=== PATIENT | male | born 1955 | race Caucasian/White ===

== ENCOUNTER 2017-12-19 09:00 | Outpatient (RCR) | payer OTHER ==
[~2017-12-19 09:00] MED LIST: LISINOPRIL PO; METOPROLOL TART50 MG PO; NORCO 10-325 T1 EACH PO; PRAVASTATIN SOD20 MG PO
== END 2017-12-23 ==
LOC: PT 09:00
PROVIDERS: ATTEND Specialist
DX: M16.12 Unilateral primary osteoarthritis, left hip (principal); M25.552 Pain in left hip; M25.562 Pain in left knee; M25.561 Pain in right knee; M54.5 Low back pain; M25.652 Stiffness of left hip, not elsewhere classified; M25.651 Stiffness of right hip, not elsewhere classified; M62.81 Muscle weakness (generalized)

== ENCOUNTER 2018-01-02 10:00 | Outpatient (RCR) | payer OTHER ==
[2018-01-06] MEDS ORDERED: LISINOPRIL-HCT1 EACH PO (15:04)
[2018-01-06] MEDS ORDERED: DICLOFENAC SODI75 MG PO (15:05)
[2018-01-06] MEDS ORDERED: MS CONTIN15 MG PO (15:05)
[2018-01-06] MEDS ORDERED: GABAPENTIN300 MG PO (15:05)
[2018-01-06] MEDS ORDERED: ACETAMINOPHEN500 MG PO (15:06)
[2018-01-06] MEDS ORDERED: GLUCOSAMINE CH1 EAC5 PO (15:07)
== END 2018-01-23 ==
LOC: PT 10:00
PROVIDERS: ATTEND Specialist
DX: M16.12 Unilateral primary osteoarthritis, left hip (principal)

== ENCOUNTER → 2018-01-08 | Day surgery (SDC) | payer OTHER ==
[2018-01-06 15:58] LABS: ANION GAP 16.7 mmol/L (8-16); CALCIUM 10.4 mg/dL (8.4-10.2); CREATININE, SERUM 1.26 mg/dL (0.72-1.25); POTASSIUM 4.7 mmol/L (3.5-5.1)
[~2018-01-08] MED LIST changes: +ACETAMINOPHEN500 MG PO; +CEFAZOLIN SOD 1 GM VIAL ONE; +DEXAMETHASONE SOD PHOS INJ 4 MG/ML VIAL ONE; +DICLOFENAC SODI75 MG PO; +FENTANYL CITRATE/PF 100MCG/2 ML INJ ONE; +GABAPENTIN300 MG PO; +GLUCOSAMINE CH1 EAC5 PO; +GLYCOPYRROLATE INJ 1MG/ 5 ML SYR ONE; +LIDOCAINE 2% /EPINEPHRINE 20 ML SDV INJ ONE; +LIDOCAINE HCL 2% LOCAL INJ 5 ML SDV VIAL INJ ONE; +LISINOPRIL-HCT1 EACH PO; +MIDAZOLAM HCL 2 MG/2 ML VIAL ONE; +MORPHINE SULFATE INJ 10 MG/ML ONE; +MS CONTIN15 MG PO; +NEOSTIGMINE 5 MG/5ML SYR ONE; +PROPOFOL IV EMULSION 10 MG/ML 20 ML VIAL ONE; +ROCURONIUM BROMIDE 10 MG/ML 5ML VIAL ONE; +ROPIVACAINE 0.5% 5 MG/ML 30 ML SDV ONE; +SEVOFLURANE INHAL SOLN 250 ML PEN BTL ONE
--- OUTSIDE RECORDS SUMMARY | 2018-01-08 09:53 | XMS REPORT | Continuity of Care Document ---
Author Author [facility] Organization [facility] Address [address] [place] [address] Phone Unavailable Care Team Providers Care Generation Mechanic Helper Name Role Phone CHRISANNA Tavera PCP Advance Directives Directive Response Recorded Date/Time Does the patient have an advance directive? Yes 12/05/17 8:55am If yes, is advance directive on file with [facility]? No 07/19/10 3:00pm If not on file with [facility] will patient provide a copy? Yes 12/05/17 8:55am Do you have a Directive to Physician? Yes 12/05/17 8:55am Do you have a Medical Power of Nail Feeder? Yes 12/05/17 8:55am Do you have an out of hospital Do Not Resuscitate Order? No 12/02/17 7:46am Do you have any special needs we should be aware of? No 12/02/17 7:46am Do you have a support person here with you today? Yes 12/05/17 8:55am Did patient receive Notice of Privacy Practices? Yes 12/05/17 8:55am Did patient receive patient rights and responsibilities? Yes 12/05/17 8:55am Problems No problem information available. Medications Current Home Medications Medication Dose Units Route Directions Days Qty Instructions Start Date Hydrocodone Bit/Acetaminophen ([place] 10-325 Tablet) 1 Each Tablet Oral As Needed Lisinopril 20 Mg Oral Daily Metoprolol Tartrate 50 Mg Tablet 50 Mg Oral Bedtime Pravastatin Sodium 20 Mg Tablet 20 Mg Oral Bedtime Social History Social History Problem Response Recorded Date/Time Onset Date Status Hx Psychiatric Problems No 07/25/2010 2:46pm Not Applicable Not Applicable Hospital Discharge Instructions No hospital discharge instruction information available. Plan of Care Prescriptions See Medication Section Functional Status No functional status information available. Allergies, Adverse Reactions, Alerts No known allergies. Immunizations No immunization information available. Vital Signs No vital sign information available. Results Laboratory Results Test Name Result Units Flags Reference Collection Date/Time Result Date/ Time Comments Prothrombin Time 12.4 seconds 11.9-14.5 03/19/2017 1:25pm 03/19/2017 1: 52pm Prothromb Time International Ratio 0.88 03/19/2017 1:25pm 2016 1:52pm Oral Anticoagulant Therapy INR Values: 1. Low Intensity Therapy 1.5 - 2.0 2. Moderate Intensity Therapy 2.0 - 3.0 3. High Intensity Therapy(1) 2.5 - 3.5 4. High Intensity Therapy(2) 3.0 - 4.0 5. Panic Value INR > 5.0 Activated Partial Thromboplast Time 28.5 seconds 23.8-35.5 03/19/2017 1: 25pm 03/19/2017 1:52pm Procedures Procedure Status Date Provider(s) CARPAL TUNNEL SURGERY Completed 03/21/17 SONY TODD MD Encounters Encounter Location Arrival/Admit Date Discharge/Depart Date Attending Provider Discharged [facility] 12/19/17 9:00am 12/23/17 11:59pm TEAGAN GRAY MD Registered Surgical Day [facility] 03/21/17 7:46am SONY TODD MD
--- NOTE | 2018-01-11 09:29 | Operative Report ---
DATE OF PROCEDURE: January 08, 2018 PREOPERATIVE DIAGNOSES 1. Left shoulder rotator cuff tear. 2. Left shoulder acromioclavicular joint arthritis. POSTOPERATIVE DIAGNOSES 1. Left shoulder massive rotator cuff tear. 2. Left shoulder acromioclavicular joint arthrosis. 3. 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 4. Left shoulder partial biceps tendon tear. 5. Left shoulder labral tear. OPERATIONS/PROCEDURES PERFORMED 1. The patient underwent a left shoulder examination under anesthesia. 2. Left shoulder arthroscopy. 3. Debridement synovitis, left shoulder joint. 4. Arthroscopic debridement of a partial biceps tendon tear. 5. Arthroscopic debridement of a labral tear. 6. Chondroplasty of the humeral head and glenoid. 7. Arthroscopic repair of a massive complex rotator cuff tear. 8. Arthroscopic subacromial decompression. 9. Arthroscopic subacromial decompression and acromioplasty. 10. Arthroscopic distal clavicle resection. EMAIL PRODUCTION CONSULTANT: None. ANESTHESIA: General endotracheal intubation anesthesia, as well as a regional block. BLOOD LOSS: Minimal. COMPLICATIONS: None. BRIEF DESCRIPTION OF THE PATIENT'S OPERATIVE PROCEDURE: Mr. Sera acevedo was taken to the operating room and placed in the supine position on the operating room table. Following the induction of general anesthesia, as well as endotracheal intubation, the patient was converted to a beach chair type position. The patient's left upper extremity was examined under anesthesia. He was found to have full passive range of motion of the shoulder joint and no evidence of instability. The patient's shoulder and upper extremity were then prepped and draped in a standard surgical fashion. A posterolateral and anterior portal was created without difficulty. The scope was placed within the shoulder joint atraumatically. Examination of the glenohumeral articulation demonstrated chondromalacia of both glenoid and humeral surfaces. There was synovitis in the shoulder joint. There were no loose bodies. There was a massive full-thickness rotator cuff tear with retraction. A probe was placed in the shoulder joint, and examination of the biceps tendon demonstrated partial tearing of the articular surface of the biceps tendon. There was also a deficient anterior labrum. The posterior and superior aspect of the labrum was also torn free from the glenoid. This was unrepairable. The biceps anchor, however, was still intact. The shaver was placed in the shoulder joint and synovitis was debrided. The biceps tendon was also debrided at this time. The posterior superior glenoid was probed thoroughly and found to be macerated and torn, and unrepairable. The superior rim of the labrum was also debrided at this time. The insertion site for the rotator cuff was debrided to a bleeding bony bed. The shoulder was then deflated of its sterile normal saline. Scope was placed in the subacromial space and significant bursal inflammation was encountered. A lateral portal was created through an outside-in technique. The shaver was placed in the subacromial space and a bursectomy was performed. The rotator cuff tear was easily identified. The shaver was used to further debride the insertion site to a bleeding bony bed. The anterolateral portal was created. A [place] was used to free the torn and retracted rotator cuff tissues. Examination of rotator cuff tissue demonstrated evidence of a previous chronic aspect of the rotator cuff injury with some delamination. The superior 50% of the rotator cuff was still intact and mobilized. The rotator cuff was found to have complex tearing, including an intratendinous tear, as well as the portion that had pulled free from the greater tuberosity of the humerus. The torn portion of the tendon was debrided, and a [id number] repair was performed in the region of the intratendinous tear. The remaining rotator cuff tissue was then freed using the elevator to enable advancement into its normal insertion site. Two triple loaded suture anchors were inserted into the greater tuberosity of the humerus. The suture arms from those anchors were then woven through the rotator cuff tissue, and the rotator cuff tissue was then advanced and tied firmly over the insertion site. This resulted in complete reapproximation of the mobile portion of the rotator cuff tissue into its normal insertion site. The coracoacromial ligament was resected. Aggressive acromioplasty was performed. The anterior portal was then transferred into the subacromial space, and a shaver was transferred to the anterior portal. At one time, the distal clavicle was resected. The shoulder was then deflated of its sterile normal saline. The portal sites were closed. The patient was provided sterile dressings, a shoulder immobilizer, and awakened and taken to the postanesthesia care in stable condition. Job#: [id number] RI
== END | disposition home or self-care (01) ==
LOC: OR 09:51
PROVIDERS: ATTEND Specialist
CPT/HCPCS: 36415; 80048; 93005; J0690; J1100; J2001; J2250; J2270; J2795

== ENCOUNTER → 2018-03-25 | Outpatient (RCR) | payer OTHER ==
[~2018-03-25] MED LIST changes: -CEFAZOLIN SOD 1 GM VIAL ONE; -DEXAMETHASONE SOD PHOS INJ 4 MG/ML VIAL ONE; -FENTANYL CITRATE/PF 100MCG/2 ML INJ ONE; -GLYCOPYRROLATE INJ 1MG/ 5 ML SYR ONE; -LIDOCAINE 2% /EPINEPHRINE 20 ML SDV INJ ONE; -LIDOCAINE HCL 2% LOCAL INJ 5 ML SDV VIAL INJ ONE; -MIDAZOLAM HCL 2 MG/2 ML VIAL ONE; -MORPHINE SULFATE INJ 10 MG/ML ONE; -NEOSTIGMINE 5 MG/5ML SYR ONE; -PROPOFOL IV EMULSION 10 MG/ML 20 ML VIAL ONE; -ROCURONIUM BROMIDE 10 MG/ML 5ML VIAL ONE; -ROPIVACAINE 0.5% 5 MG/ML 30 ML SDV ONE; -SEVOFLURANE INHAL SOLN 250 ML PEN BTL ONE
== END ==
LOC: PT 03-05 09:02
PROVIDERS: ATTEND Specialist
DX: S46.092D Other injury of muscle(s) and tendon(s) of the rotator cuff of left shoulder, subsequent encounter (principal); M19.012 Primary osteoarthritis, left shoulder; Z47.89 Encounter for other orthopedic aftercare; M25.512 Pain in left shoulder; M25.612 Stiffness of left shoulder, not elsewhere classified; M62.81 Muscle weakness (generalized)

== ENCOUNTER 2018-03-28 09:14 | Outpatient (RCR) | payer OTHER | END 2018-04-25 | LOC: PT 09:14 | PROVIDERS: ATTEND Specialist | DX: S46.092D Other injury of muscle(s) and tendon(s) of the rotator cuff of left shoulder, subsequent encounter (principal); Z47.89 Encounter for other orthopedic aftercare; M19.012 Primary osteoarthritis, left shoulder; M25.512 Pain in left shoulder; M25.612 Stiffness of left shoulder, not elsewhere classified; M62.81 Muscle weakness (generalized) ==

== ENCOUNTER → 2018-06-26 | Outpatient (CLI) | payer OTHER ==
--- NOTE | 2018-06-26 11:32 | Diagnostic Imaging Report ---
TECHNIQUE: Magnetic resonance imaging of the LEFT KNEE was performed WITHOUT injected contrast. HISTORY: Left knee pain, evaluate for meniscus tear COMPARISON: None available. FINDINGS: LIGAMENTS AND TENDONS: ACL: Attenuation and degeneration. PCL: Intact Collateral ligaments: Intact Iliotibial band: Unremarkable Popliteal tendon: Intact Extensor mechanism: Intact JOINT: Menisci: Medial: Not visualized/absent. Lateral: Degeneration of the posterior horn with horizontal tear. Articular Cartilage: Medial Compartment: Diffuse high-grade cartilage loss with regions of full-thickness erosion and subchondral edema. Lateral Compartment: Diffuse low grade cartilage loss. Patellofemoral Compartment: Diffuse intermediate grade cartilage loss. Joint Fluid: Moderate joint effusion with multiple calcified bodies most prominent within the suprapatellar recess with the largest measuring 1.5 cm BONE: As above. No acute fracture. SOFT TISSUES: Otherwise, unremarkable. IMPRESSION: Tricompartmental degenerative arthrosis, most severe within the medial tibiofemoral compartment with absent meniscus, regions of full-thickness cartilage loss, and subchondral edema. Joint effusion with calcified bodies in the suprapatellar recess. Signed by: Dr. Antonino Lara M.D. on 06/26/2018 11:29 AM
== END ==
LOC: MRI 10:07
PROVIDERS: ATTEND Specialist
DX: S83.262A Peripheral tear of lateral meniscus, current injury, left knee, initial encounter (principal); S83.222A Peripheral tear of medial meniscus, current injury, left knee, initial encounter